=== PATIENT | female | born 1960 | race African-American/Black ===

== ENCOUNTER → 2016-03-05 | Outpatient (CLI) | payer BC | LOC: RAD 16:59 | PROVIDERS: ATTEND Family Medicine | DX: M25.531 Pain in right wrist (principal); M79.643 Pain in unspecified hand ==

== ENCOUNTER 2016-03-25 22:15 | Emergency (ER) | payer BC ==
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
[2016-03-26] MEDS ORDERED: IBUPROFEN 800 MG TABLET PO ONE (01:10)
[2016-03-26] MEDS ORDERED: DEXAMETHASONE SOD PHOS INJ 10 MG/1 ML VIAL IM ONE (03:07)
[2016-03-26] MEDS ORDERED: CYCLOBENZAPRINE HCL 10 MG TABLET PO ONE (03:13)
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
[2016-03-26 03:41] VITALS: BP 129/80
== END 2016-03-26 03:42 | disposition home or self-care (01) ==
LOC: ER 22:15
DX: M54.41 Lumbago with sciatica, right side (principal); M54.9 Dorsalgia, unspecified; V87.7XXA Person injured in collision between other specified motor vehicles (traffic), initial encounter
CPT/HCPCS: 99283; 96372; 72110; J1100

== ENCOUNTER 2017-03-25 15:33 | Inpatient (IN) | payer BC ==
[2017-03-25] MEDS ORDERED: ACETAMINOPHEN 325 MG TABLET PO PRN (15:34)
[2017-03-25] MEDS ORDERED: IPRATROPIUM/ALBUTEROL 0.5-2.5 MG/3 ML AMPUL NEB PRN (15:34)
[2017-03-25] MEDS ORDERED: NORMAL SALINE 1000 ML 1,000 ML IV PRN (15:34)
[2017-03-25] MEDS ORDERED: INSULIN LISPRO 100 UNIT/ML 3 ML VIAL SUBCUT PRN (15:39)
[2017-03-25] MEDS ORDERED: GLUCAGON,HUMAN RECOMB 1 MG INJ IM PRN (15:39)
[2017-03-25] MEDS ORDERED: DEXTROSE 50%-WATER 25 GM/50 ML DISP.SYRIN IV PRN ×2 (15:39)
[2017-03-25] MEDS ORDERED: DEXTROSE 40% GEL 15 GM TUBE PO PRN ×2 (15:39)
[2017-03-25] MEDS ORDERED: CEFTRIAXONE 1 GM/D5W RTU 1 GM/50 ML RTUPB IV SCH (16:00)
--- NOTE | 2017-03-25 16:13 | HISTORY AND PHYSICAL E ---
History and Physical NAME: VIDHI CUI : 1960 AGE: 56Y ADMITTED: 03/25/2017 ROOM: 415 CHIEF COMPLAINT: Dizziness, weakness. HISTORY OF PRESENT ILLNESS: This is a 56-year-old female with a history of type 2 diabetes mellitus, history of hypertension, history of hyperlipidemia, came to the office today with complaining of not feeling well and very dizzy, especially when she stands up and feels like passing out and feeling like room spinning kind of symptoms, vague symptoms with a recent history of the URI flu-like symptoms last week. Patient was, at that point, prescribed Zithromax and Tessalon Perles when respiratory symptoms came better. Today the patient is in the office and otherwise awake, oriented. No complaint with chest pain. Not short of breath but every time she starts to stand up, very dizzy. The patient's blood pressure was 92/66, which last week was 150-160 range. Patient's O2 sat was 99%. At this point, patient was very unstable. I decided to admit for possible dehydration, vertigo, and rule out any other dizziness symptoms. PAST MEDICAL HISTORY: 1. Type 2 diabetes mellitus. 2. Hypertension. 3. Hyperlipidemia. CURRENT MEDICATIONS: 1. Flonase. 2. Omeprazole 20 mg daily. 3. Vitamin D once a week. 4. *------* XL 5000 mg 1 tablet daily. 5. Hydrochlorothiazide 25 mg daily. 6. Losartan 50 mg p.o. daily. 7. Tessalon Perles. 8. Zithromax. ALLERGIES: TO CONTRAST IV DYE. PAST SURGICAL HISTORY: Hysterectomy. FAMILY HISTORY: Father has diabetes. Mother diagnosed with diabetes, too. SOCIAL HISTORY: No smoking. No alcohol. No substance abuse. REVIEW OF SYSTEMS: As above, all other pertinent systems negative. PHYSICAL EXAMINATION: VITAL SIGNS: Temperature is 98.6, heart rate was 99, blood pressure was 93/73 while sitting, supine is 101/67, standing is 92/66, weight is 180, respirations were 16, O2 is 99% on room air. GENERAL: The patient is alert, awake, oriented x3. There was not any acute distress. HEAD AND NECK: Normocephalic. PERRL. Ears are normal but there is some fluid in both ears. Nose has mild congestion. Oropharynx has dry mucosa. HEART: S1, S2 is present. ABDOMEN: Soft. Bowel sounds present. EXTREMITIES: No edema. No calf tenderness. NEUROLOGIC: The patient is moving all 4 extremities. Cranial nerves grossly intact *------*. Patient's reflexes are also normal. LUNGS: Clear to auscultation bilaterally. ASSESSMENT: 1. Dizziness, giddiness. 2. Hypotension. 3. Type 2 diabetes mellitus. 4. Recent URI, flu-like symptoms. 5. Hyperlipidemia. 6. Osteoarthritis with weakness. PLAN: Admit the patient in a tele bed for the possible dehydration and rule out the dizziness, get the IV fluid, get the MRI of the head, and get the urine culture, blood culture, start the patient on IV antibiotics, and continue to monitor the patient. Patient was complaining of mild shortness of breath. We will get the chest x-ray. More than 35 minutes spent directly admitting the patient to the hospital. Patient at this point discussed with the family. I hope the patient continues to be improved. DICTATING PHYSICIAN: AMADO BRADY M.D. [id number] Y#: [id number] ID: [id number] JOB#: [id number] ACCT: [id number] cc:AMADO BRADY M.D. >
[2017-03-25] MEDS ORDERED: INFLUENZA ADLT QUAD (36MOS+) 2017-18 VAC 0.5 ML SYR IM PRN (16:35)
[2017-03-25 17:10] LABS: CREATINE KINASE MB 1.07 ng/mL (<4.55)
[2017-03-25 17:12] LABS: TROPONIN I < 0.012 ng/mL
[2017-03-25] MEDS ORDERED: ENOXAPARIN SODIUM INJ 40 MG/0.4 ML DISP.SYRIN SUBCUT ONE (17:30)
--- NOTE | 2017-03-25 17:31 | RADIOLOGY REPORT (SQ) ---
EXAM DESCRIPTION: CHEST PA/LAT COMPLETED DATE/TIME: 03/25/2017 5:09 pm REASON FOR STUDY: cough COMPARISON: 03/24/2017 EXAM PARAMETERS: NUMBER OF VIEWS: two views TECHNIQUE: Digital Frontal and Lateral radiographic views of the chest acquired. RADIATION DOSE: NA LIMITATIONS: none FINDINGS: LUNGS AND PLEURA: No opacities, masses or pneumothorax. No pleural effusion. MEDIASTINUM AND HILAR STRUCTURES: No masses or contour abnormalities. HEART AND VASCULAR STRUCTURES: Heart normal size. No evidence for failure. BONES: No acute findings. HARDWARE: None in the chest. OTHER: No other significant finding. IMPRESSION: NO SIGNIFICANT RADIOGRAPHIC FINDING IN THE CHEST. TECHNICAL DOCUMENTATION: JOB ID: [id number] [employer]- All Rights Reserved
[2017-03-25] MEDS ORDERED: ALPRAZOLAM 0.25 MG TABLET PO ONE (18:00)
[2017-03-25 18:02] LABS: HEMATOCRIT 40.4 % (36.0-47.0); HEMOGLOBIN 12.9 g/dL (12.0-15.5); MEAN CORPUSCULAR HEMOGLOBIN 25.7 pg (27.0-33.4); MEAN CORPUSCULAR VOLUME 80 fl (80-97); PLATELET COUNT 239 10^3/uL (150-450); RED BLOOD COUNT 5.03 10^6/uL (3.72-5.28); RED CELL DISTRIBUTION WIDTH 15.9 % (11.5-14.0)
[2017-03-25 18:07] LABS: ALANINE AMINOTRANSFERASE 39 U/L (9-52); ALBUMIN 4.7 g/dL (3.5-5.0); ALKALINE PHOSPHATASE 86 U/L (38-126); ANION GAP 17 (5-19); ASPARTATE AMINO TRANSFERASE 42 U/L (14-36); BILIRUBIN,DIRECT 0.4 mg/dL (0.0-0.4); BILIRUBIN,TOTAL 0.4 mg/dL (0.2-1.3); BLOOD UREA NITROGEN 28 mg/dL (7-20); CALCIUM 10.4 mg/dL (8.4-10.2); CARBON DIOXIDE 24 mmol/L (22-30); CHLORIDE 100 mmol/L (98-107); GLUCOSE 114 mg/dL (75-110); POTASSIUM 3.4 mmol/L (3.6-5.0); SODIUM 140.6 mmol/L (137-145); TOTAL PROTEIN 8.2 g/dL (6.3-8.2)
[2017-03-25] MEDS: CEFTRIAXONE SODIUM 1,000 MG in NORMAL SALINE 50 ML IV SCH (18:24)
[2017-03-25 18:26] LABS: ABSOLUTE LYMPHOCYTES# (MANUAL) 2.5 10^3/uL (0.5-4.7); ABSOLUTE MONOCYTES # (MANUAL) 0.6 10^3/uL (0.1-1.4); ABSOLUTE NEUTROPHILS# (MANUAL) 0.9 10^3/uL (1.7-8.2); BASOPHILS % (MANUAL) 0 % (0-2); EOSINOPHILS % (MANUAL) 0 % (0-6); LYMPHOCYTES % (MANUAL) 55 % (13-45); MONOCYTES % (MANUAL) 15 % (3-13); SEGMENTED NEUTROPHILS % (MAN) 22 % (42-78); TOTAL CELLS COUNTED 100
[2017-03-25 18:27] LABS: ANISOCYTOSIS SLIGHT; HYPOCHROMASIA SLIGHT; PLATELET COMMENT ADEQUATE; TOXIC GRANULATION SLIGHT
--- NOTE | 2017-03-25 20:10 | RADIOLOGY REPORT (SQ) ---
EXAM DESCRIPTION: NM LUNG VENT/PERF SCAN COMPLETED DATE/TIME: 03/25/2017 7:53 pm REASON FOR STUDY: abnormal d-dimer COMPARISON: None. RADIONUCLIDE AND DOSE: 5.4 millicuries TC-99m MAA Intravenous 32.7 millicuries TC-99m DTPA Inhaled aerosol TECHNIQUE: Eight views of the lungs acquired post ventilation of DTPA aerosol. Eight matching views of the lungs acquired following injection of MAA. LIMITATIONS: None. FINDINGS: VENTILATION: Symmetric and homogeneous distribution of DTPA aerosol during ventilatory pha se. No significant areas of photopenia. PERFUSION: Perfusion images with normal homogenous activity and no wedge-shaped or segmental defects. No ventilation-perfusion mismatches. OTHER: No other significant finding. IMPRESSION: Low probability for pulmonary embolus. TECHNICAL DOCUMENTATION: JOB ID: [id number] [employer]- All Rights Reserved
--- NOTE | 2017-03-25 20:10 | RADIOLOGY REPORT (SQ) ---
EXAM DESCRIPTION: CT HEAD WITHOUT COMPLETED DATE/TIME: 03/25/2017 7:54 pm REASON FOR STUDY: dizziness, hypotension COMPARISON: None. TECHNIQUE: Axial images acquired through the brain without intravenous contrast. Images reviewed wi th bone, brain and subdural windows. Images stored on PACS. All CT scanners at this facility use dose modulation, iterative reconstruction, and/or weight based d osing when appropriate to reduce radiation dose to as low as reasonably achievable (ALARA). [facility]: Dose Right [facility]: CareDose [facility]: Dose Right [facility]: Teradose 4D [facility]: [employer] RADIATION DOSE: CT Rad equipment meets quality standard of care and radiation dose reduction techniq ues were employed. CTDIvol: 67.0 mGy. DLP: 1182 mGy-cm. mGy. LIMITATIONS: None. FINDINGS: VENTRICLES: Normal size and contour. CEREBRUM: No masses. No hemorrhage. No midline shift. No evidence for acute infarction. Normal gra y/white matter differentiation. No areas of low density in the white matter. CEREBELLUM: No masses. No hemorrhage. No alteration of density. No evidence for acute infarction. EXTRAAXIAL SPACES: No fluid collections. No masses. ORBITS AND GLOBE: No intra- or extraconal masses. Normal contour of globe without masses. CALVARIUM: No fracture. PARANASAL SINUSES: No fluid or mucosal thickening. SOFT TISSUES: No mass or hematoma. OTHER: No other significant finding. IMPRESSION: NORMAL BRAIN CT WITHOUT CONTRAST. EVIDENCE OF ACUTE STROKE: NO. COMMENT: Quality ID # [id number]: Final reports with documentation of one or more dose reduction techniques (e.g., Automated exposure control, adjustment of the mA and/or kV according to patient size, use of iterative reconstruction technique) TECHNICAL DOCUMENTATION: JOB ID: [id number] [employer]- All Rights Reserved
--- NOTE | 2017-03-25 21:22 | EKG REPORT ---
SEVERITY:- NORMAL ECG - SINUS RHYTHM : Confirmed by: Khang Narayanan 25-Mar-2017 21:21:11
[2017-03-25] MEDS: POTASSI CL 20 MEQ/NS 1L 1000 ML IV PRN (21:37)
[2017-03-25 22:52] LABS: TROPONIN I < 0.012 ng/mL
[2017-03-26 04:38] LABS: MEAN CORPUSCULAR HEMOGLOBIN 25.7 pg (27.0-33.4); MEAN CORPUSCULAR HGB CONC 32.5 g/dL (32.0-36.0); MEAN CORPUSCULAR VOLUME 79 fl (80-97); PLATELET COUNT 194 10^3/uL (150-450); RED BLOOD COUNT 4.67 10^6/uL (3.72-5.28); RED CELL DISTRIBUTION WIDTH 15.7 % (11.5-14.0); WHITE BLOOD COUNT 3.7 10^3/uL (4.0-10.5)
[2017-03-26 04:47] LABS: ALANINE AMINOTRANSFERASE 44 U/L (9-52); ALBUMIN 4.1 g/dL (3.5-5.0); ALKALINE PHOSPHATASE 69 U/L (38-126); ANION GAP 13 (5-19); ASPARTATE AMINO TRANSFERASE 37 U/L (14-36); BILIRUBIN,DIRECT 0.2 mg/dL (0.0-0.4); BILIRUBIN,TOTAL 0.2 mg/dL (0.2-1.3); BLOOD UREA NITROGEN 24 mg/dL (7-20); CALCIUM 9.4 mg/dL (8.4-10.2); CARBON DIOXIDE 23 mmol/L (22-30); CHLORIDE 105 mmol/L (98-107); CREATINE KINASE 180 U/L (30-135); GLUCOSE 109 mg/dL (75-110); MAGNESIUM 2.1 mg/dL (1.6-2.3); POTASSIUM 3.7 mmol/L (3.6-5.0); SODIUM 141.3 mmol/L (137-145); TOTAL PROTEIN 6.6 g/dL (6.3-8.2)
[2017-03-26 04:55] LABS: CREATINE KINASE MB 0.74 ng/mL (<4.55)
[2017-03-26 04:59] LABS: TROPONIN I < 0.012 ng/mL
[2017-03-26] MEDS: POTASSI CL 20 MEQ/NS 1L 1000 ML IV PRN ×3 (05:22→21:24)
[2017-03-26 05:40] LABS: ABSOLUTE LYMPHOCYTES# (MANUAL) 2.7 10^3/uL (0.5-4.7); ABSOLUTE MONOCYTES # (MANUAL) 0.3 10^3/uL (0.1-1.4); ABSOLUTE NEUTROPHILS# (MANUAL) 0.6 10^3/uL (1.7-8.2); BAND NEUTROPHILS % (MANUAL) 2 % (3-5); BASOPHILS % (MANUAL) 0 % (0-2); EOSINOPHILS % (MANUAL) 0 % (0-6); LYMPHOCYTES % (MANUAL) 68 % (13-45); MONOCYTES % (MANUAL) 9 % (3-13); SEGMENTED NEUTROPHILS % (MAN) 15 % (42-78); TOTAL CELLS COUNTED 100
[2017-03-26 05:45] LABS: HYPOCHROMASIA SLIGHT
[2017-03-26 05:46] LABS: PLATELET COMMENT ADEQUATE
[2017-03-26] MEDS ORDERED: MECLIZINE HCL 12.5 MG TABLET PO PRN (08:20)
[2017-03-26] MEDS: ASPIRIN 81 MG TABLET, ENT COATED PO SCH (09:09)
[2017-03-26] MEDS: ENOXAPARIN SODIUM INJ 40 MG/0.4 ML DISP.SYRIN SUBCUT SCH (09:09)
--- NOTE | 2017-03-26 10:20 | PDOC PROGRESS REPORT ---
Subjective Progress Note for:: 03/26/17 Subjective:: Patient is currently doing fair Still feel dizzy and most likely when she move safely like the room is spinning send the looks like she is going to passing out Patient's denied any chest pain denied any shortness of the breath Patient CT of the head and VQ scan was all negative Patient EKG and all cardiac enzymes also negative Patients definitely contact with the flu patient last week and I think started all the symptoms afterwards she is very consistent with the positive flu like symptoms Patient's kidney function is getting better compared to yesterday after hydrations Reason For Visit: DIZZINESS,HYPOTENSION,DEHYDRATION Physical Exam Vital Signs: Temp Pulse Resp BP Pulse Ox 98.3 F 73 18 103/71 97 03/26/17 07:41 03/26/17 07:41 03/26/17 07:41 03/26/17 07:41 03/26/17 07:41 Intake & Output 03/25/17 03/26/17 03/27/17 06:59 06:59 06:59 Intake Total 2690 Output Total 950 Balance 1740 Weight 79 kg General appearance: PRESENT: no acute distress, well-developed, well-nourished Head exam: PRESENT: atraumatic, normocephalic Eye exam: PRESENT: conjunctiva pink, EOMI, PERRLA. ABSENT: scleral icterus Ear exam: PRESENT: normal external ear exam Mouth exam: PRESENT: moist, tongue midline Neck exam: PRESENT: full ROM. ABSENT: carotid bruit, JVD, lymphadenopathy, thyromegaly Respiratory exam: PRESENT: clear to auscultation alicia Cardiovascular exam: PRESENT: RRR. ABSENT: diastolic murmur, rubs, systolic murmur Pulses: PRESENT: normal dorsalis pedis pul, +2 pedal pulses bilateral Vascular exam: PRESENT: normal capillary refill GI/Abdominal exam: PRESENT: normal bowel sounds, soft. ABSENT: distended, guarding, mass, organolmegaly, rebound, tenderness Rectal exam: PRESENT: deferred Musculoskeletal exam: PRESENT: ambulatory Neurological exam: PRESENT: alert, awake, oriented to person, oriented to place , oriented to time, oriented to situation, reflexes normal, CN II-XII grossly intact, normal gait. ABSENT: motor sensory deficit Additional comments: Needed assistance to walk because of the vertigo symptoms Psychiatric exam: PRESENT: appropriate affect, normal mood. ABSENT: homicidal ideation, suicidal ideation Skin exam: PRESENT: dry, intact, warm. ABSENT: cyanosis, rash Results Laboratory Results: 03/26/17 04:04 03/26/17 04:04 03/25/17 03/25/17 03/26/17 16:30 16:30 04:04 WBC 4.0 3.7 L RBC 5.03 4.67 Hgb 12.9 12.0 Hct 40.4 37.0 MCV 80 79 L MCH 25.7 L 25.7 L MCHC 32.0 32.5 RDW 15.9 H 15.7 H Plt Count 239 194 Seg Neutrophils % Not Reportable Not Reportable Lymphocytes % Not Reportable Not Reportable Monocytes % Not Reportable Not Reportable Eosinophils % Not Reportable Not Reportable Basophils % Not Reportable Not Reportable Absolute Neutrophils Not Reportable Not Reportable Absolute Lymphocytes Not Reportable Not Reportable Absolute Monocytes Not Reportable Not Reportable Absolute Eosinophils Not Reportable Not Reportable Absolute Basophils Not Reportable Not Reportable Sodium 140.6 Potassium 3.4 L Chloride 100 Carbon Dioxide 24 Anion Gap 17 BUN 28 H Creatinine 1.74 H Est GFR ( Amer) 36 L Est GFR (Non-Af Amer) 30 L Glucose 114 H Calcium 10.4 H Magnesium Total Bilirubin 0.4 AST 42 H ALT 39 Alkaline Phosphatase 86 Total Protein 8.2 Albumin 4.7 03/26/17 04:04 WBC RBC Hgb Hct MCV MCH MCHC RDW Plt Count Seg Neutrophils % Lymphocytes % Monocytes % Eosinophils % Basophils % Absolute Neutrophils Absolute Lymphocytes Absolute Monocytes Absolute Eosinophils Absolute Basophils Sodium 141.3 Potassium 3.7 Chloride 105 Carbon Dioxide 23 Anion Gap 13 BUN 24 H Creatinine 1.07 Est GFR ( Amer) > 60 Est GFR (Non-Af Amer) 53 L Glucose 109 Calcium 9.4 Magnesium 2.1 Total Bilirubin 0.2 AST 37 H ALT 44 Alkaline Phosphatase 69 Total Protein 6.6 Albumin 4.1 03/25/17 03/25/17 03/25/17 16:30 16:30 21:40 Creatine Kinase 234 H 197 H CK-MB (CK-2) 1.07 Troponin I < 0.012 03/25/17 03/26/17 03/26/17 21:40 04:04 04:04 Creatine Kinase 180 H CK-MB (CK-2) 0.90 0.74 Troponin I < 0.012 < 0.012 Impressions: Chest X-Ray 03/25/17 00:00 IMPRESSION: NO SIGNIFICANT RADIOGRAPHIC FINDING IN THE CHEST. Head CT 03/25/17 00:00 IMPRESSION: NORMAL BRAIN CT WITHOUT CONTRAST. EVIDENCE OF ACUTE STROKE: NO. Lung Scan-VQ NM 03/25/17 00:00 IMPRESSION: Low probability for pulmonary embolus. Assessment & Plan - Diagnosis (1) Dizziness and giddiness Is this a current diagnosis for this admission?: Yes Plan: Patient's initial CT head is all negatives unfortunately patient is unable to go for MRI due to the claustrophobia even the medications does not work We will get the carotid Doppler and echocardiogram (2) Vertigo Is this a current diagnosis for this admission?: Yes Plan: Likely due to this viral syndromes will get the physical therapy evaluations and start the patient on the meclizine (3) Acute renal failure Qualifiers: Acute renal failure type: unspecified Qualified Code(s): N17.9 - Acute kidney failure, unspecified Is this a current diagnosis for this admission?: Yes Plan: Is all improving due to the dehydration's (4) Dehydration Is this a current diagnosis for this admission?: Yes Plan: Continues IV fluid (5) Hypotension Qualifiers: Hypotension type: unspecified hypotension type Qualified Code(s): I95.9 - Hypotension, unspecified Is this a current diagnosis for this admission?: Yes Plan: Most likely related to the resistance viral symptoms will continues IV fluid and hold the blood pressure medications (6) Viral syndrome Is this a current diagnosis for this admission?: Yes Plan: Patient's contact with the flu person she is more consistent with all the symptoms Continue supportive treatments patient's currently improving the all URI symptoms no fever (7) Type 2 diabetes mellitus Qualifiers: Diabetes mellitus complication status: with unspecified complications Is this a current diagnosis for this admission?: Yes Plan: Continues a sliding scale with [facility] protocol (8) Hyperlipidemia Is this a current diagnosis for this admission?: Yes (9) Hypertension Is this a current diagnosis for this admission?: Yes Plan: Due to the low blood pressures currently hold the medications - Time Time Spent with patient: 15-24 minutes Medications reviewed and adjusted accordingly: Yes Anticipated discharge: Home Within: Other - Inpatient Certification Medical Necessity: Need Close Monitoring Due to Risk of Patient Decompensation, Need For IV Fluids, Need for IV Antibiotics Post Hospital Care: D/C Press Cutter Documentation - Plan Summary Plan Summary: Discussed with the patient about the all the test reports we will continues IV fluid and we antibiotic and await for the cultures and get the echo and carotid Doppler study today
[2017-03-26 11:34] LABS: CREATINE KINASE MB 0.62 ng/mL (<4.55)
[2017-03-26 11:35] LABS: TROPONIN I < 0.012 ng/mL
[2017-03-26 11:38] LABS: PATH REVIEW PATHOLOGIST REVIEWED
[2017-03-26] MEDS: MECLIZINE HCL 12.5 MG TABLET PO SCH ×2 (13:20→21:24)
--- NOTE | 2017-03-26 14:34 | RADIOLOGY REPORT (SQ) ---
EXAM DESCRIPTION: CT CHEST WITHOUT COMPLETED DATE/TIME: 03/26/2017 1:36 pm REASON FOR STUDY: cough/hypotension COMPARISON: Chest x-ray dated 03/25/[address] scan dated July 2008 TECHNIQUE: CT scan performed of the chest without intravenous contrast. Images reviewed with lung, soft tissue and bone windows. Reconstructed coronal and sagittal MPR images reviewed. All images st ored on PACS. All CT scanners at this facility use dose modulation, iterative reconstruction, and/or weight based d osing when appropriate to reduce radiation dose to as low as reasonably achievable (ALARA). [facility]: Dose Right [facility]: CareDose [facility]: Dose Right [facility]: Teradose 4D [facility]: Smart Joinnus RADIATION DOSE: CT Rad equipment meets quality standard of care and radiation dose reduction techniq ues were employed. CTDIvol: 12.2 mGy. DLP: 461 mGy-cm. mGy. LIMITATIONS: No technical limitations. FINDINGS: LUNGS AND PLEURA: No masses, infiltrates, pneumothorax. No pleural effusions, calcificati ons. There are some minimal linear densities in the lingula of the left upper lobe most consistent w ith subsegmental atelectasis or scarring. HILAR AND MEDIASTINAL STRUCTURES: No identified masses or abnormal nodes. No obvious aneurysm. HEART AND VASCULAR STRUCTURES: No aneurysm. No pericardial effusion. UPPER ABDOMEN: There is a well demarcated 1.1 cm in diameter ovoid mass adjacent to the wall of the g allbladder best seen on image number 59 of series 2 which I cannot exclude as a small gallbladder mas s lesion. Gallbladder ultrasound may be of value for further evaluation. THYROID AND OTHER SOFT TISSUES: No masses. No adenopathy. BONES: No significant finding. HARDWARE: None in the chest. OTHER: No other significant findings. IMPRESSION: Minimal linear densities in the lingula of the left upper lobe as noted above most consi stent with subsegmental atelectasis or scarring. No acute consolidations or pleural effusions are id entified. Other findings as noted above TECHNICAL DOCUMENTATION: JOB ID: [id number] Quality ID # [id number]: Final reports with documentation of one or more dose reduction techniques (e.g., Au tomated exposure control, adjustment of the mA and/or kV according to patient size, use of iterative reconstruction technique) 2010 [employer]- All Rights Reserved
[2017-03-26 15:35] LABS: CREATINE KINASE MB 0.56 ng/mL (<4.55)
[2017-03-26 15:38] LABS: TROPONIN I < 0.012 ng/mL
[2017-03-26] MEDS: CEFTRIAXONE SODIUM 1,000 MG in NORMAL SALINE 50 ML IV SCH (17:37)
[2017-03-26 21:46] LABS: CREATINE KINASE MB 0.42 ng/mL (<4.55)
[2017-03-26 21:49] LABS: TROPONIN I < 0.012 ng/mL
[2017-03-27] MEDS: POTASSI CL 20 MEQ/NS 1L 1000 ML IV PRN (05:22)
[2017-03-27] MEDS: MECLIZINE HCL 12.5 MG TABLET PO SCH ×2 (05:22→14:31)
[2017-03-27 05:55] LABS: ANION GAP 8 (5-19); BLOOD UREA NITROGEN 16 mg/dL (7-20); CALCIUM 8.6 mg/dL (8.4-10.2); CARBON DIOXIDE 28 mmol/L (22-30); CHLORIDE 110 mmol/L (98-107); GLUCOSE 103 mg/dL (75-110); POTASSIUM 4.2 mmol/L (3.6-5.0); SODIUM 145.7 mmol/L (137-145)
[2017-03-27 06:15] LABS: MEAN CORPUSCULAR HEMOGLOBIN 25.8 pg (27.0-33.4); MEAN CORPUSCULAR HGB CONC 32.4 g/dL (32.0-36.0); MEAN CORPUSCULAR VOLUME 80 fl (80-97); PLATELET COUNT 213 10^3/uL (150-450); RED BLOOD COUNT 4.27 10^6/uL (3.72-5.28); RED CELL DISTRIBUTION WIDTH 15.4 % (11.5-14.0); WHITE BLOOD COUNT 3.9 10^3/uL (4.0-10.5)
[2017-03-27 06:49] LABS: ABSOLUTE MONOCYTES # (MANUAL) 0.2 10^3/uL (0.1-1.4); ABSOLUTE NEUTROPHILS# (MANUAL) 0.2 10^3/uL (1.7-8.2); BASOPHILS % (MANUAL) 0 % (0-2); EOSINOPHILS % (MANUAL) 1 % (0-6); MONOCYTES % (MANUAL) 5 % (3-13); SEGMENTED NEUTROPHILS % (MAN) 5 % (42-78); TOTAL CELLS COUNTED 100
[2017-03-27 06:59] LABS: ABSOLUTE LYMPHOCYTES# (MANUAL) 3.5 10^3/uL (0.5-4.7); ANISOCYTOSIS 1+; HYPOCHROMASIA SLIGHT; LYMPHOCYTES % (MANUAL) 82 % (13-45)
[2017-03-27 07:00] LABS: PLATELET COMMENT ADEQUATE
[2017-03-27] MEDS: ASPIRIN 81 MG TABLET, ENT COATED PO SCH (10:14)
[2017-03-27] MEDS: ENOXAPARIN SODIUM INJ 40 MG/0.4 ML DISP.SYRIN SUBCUT SCH (10:15)
--- NOTE | 2017-03-27 12:14 | RADIOLOGY REPORT (SQ) ---
EXAM DESCRIPTION: U/S ABDOMEN LIMITED W/O DOP COMPLETED DATE/TIME: 03/27/2017 11:46 am REASON FOR STUDY: gall bladder mass COMPARISON: Chest CT scan dated 03/26/2017 TECHNIQUE: Dynamic and static grayscale images acquired of the abdomen and recorded on PACS. Additio nal selected color Doppler and spectral images recorded. LIMITATIONS: None. FINDINGS: PANCREAS: No masses. No peripancreatic edema or fluid collections. LIVER: Echotexture is coarse with increased echogenicity consistent with fatty infiltration. LIVER VASCULATURE: Normal directional flow of the main portal vein. GALLBLADDER: Small gallstones are identified as well as a component of biliary sludge. Normal wall th ickness. No pericholecystic fluid. ULTRASOUND-DETECTED MARTINEZ'S SIGN: Negative. INTRAHEPATIC DUCTS AND COMMON DUCT: CBD and intrahepatic ducts normal caliber. No filling defects. INFERIOR VENA CAVA: Normal flow. AORTA: No aneurysm. RIGHT KIDNEY: Normal size. Normal echogenicity. No solid or suspicious masses. No hydronephrosis. No calcifications. PERITONEAL AND RIGHT PLEURAL SPACE: No ascites or effusions. OTHER: No other significant finding. IMPRESSION: FATTY INFILTRATION OF THE LIVER. Findings consistent with small gallstones as well as a component of biliary sludge. No other significant findings. TECHNICAL DOCUMENTATION: JOB ID: [id number] [employer]- All Rights Reserved
--- NOTE | 2017-03-27 15:16 | RADIOLOGY REPORT (SQ) ---
EXAM DESCRIPTION: CAROTID DOPPLER COMPLETED DATE/TIME: 03/27/2017 3:07 pm REASON FOR STUDY: dizziness COMPARISON: None. TECHNIQUE: Grayscale ultrasound, Doppler velocity and spectra, and color Doppler images acquired of the extra-cranial carotid and vertebral arteries. Images stored on PACS. LIMITATIONS: None. FINDINGS: RIGHT CAROTID CCA Velocities: Within normal limits. ICA Velocities Peak systolic 0.81 m/s. End diastolic 0.18 m/s. Proximal ICA/CCA peak systolic ratio 1.0. Spectra normal. No significant plaque. LEFT CAROTID CCA Velocities: Within normal limits. ICA Velocities Peak systolic 0.58 m/s. End diastolic 0.27 m/s. Proximal ICA/CCA peak systolic ratio point and. Spectra normal. No significant plaque. VERTEBRAL ARTERIES: Antegrade flow. Normal waveforms. SUBCLAVIAN ARTERIES: No finding. OTHER: No other significant finding. IMPRESSION: NO HEMODYNAMICALLY SIGNIFICANT STENOSIS. COMMENT: Quality ID #[id number]: Velocity criteria are extrapolated from the diameter data as defined by t he Society of Radiologists in Ultrasound Consensus Conference. Radiology 2003: 229; 340-346. TECHNICAL DOCUMENTATION: JOB ID: [id number] [employer]- All Rights Reserved
--- NOTE | 2017-03-27 15:34 | XCELERA REPORT ---
[address] [address] Transthoracic Echocardiogram Report Name: VIDHI CUI Age: 56 yrs Gender: Female : 1960 Patient Status: Inpatient Patient Location: [address] [place] [address] Study Date: 03/27/2017 01:25 PM Height: 66 in Weight: 174 lb BSA: 1.9 m2 Procedure: A complete two-dimensional transthoracic echocardiogram was performed (2D, M-mode, spectral and color flow Doppler). The study was technically adequate with some images being suboptimal in quality. Reason For Study: dizziness Ordering Physician: AMADO BRADY Performed By: Jessy Luz Interpretation Summary The left ventricular ejection fraction is within normal limits. There is borderline concentric left ventricular hypertrophy. Doppler measurements suggest impaired left ventricular relaxation, which is associated with grade I/IV or mild diastolic dysfunction The left ventricle is grossly normal size. Wall motion cannot be accurately commented on, but no definite regional wall motion abnormalities noted. Borderline right ventricular enlargement. The right ventricular systolic function is normal. The right atrium is normal in size The left atrial size is normal. There is a mild amount of mitral regurgitation There is no mitral valve stenosis. There is a trace amount of aortic regurgitation There is no aortic valve stenosis There is a trace to mild amount of tricuspid regurgitation Right ventricular systolic pressure is at the upper limits of normal The aortic root is not well visualized but is probably normal size. The inferior vena cava appeared normal and decreased > 50% with respiration (RAP 5-10 mmHg) There is no pericardial effusion. MMode/2D Measurements & Calculations RVDd: 3.7 cm LVIDd: 4.0 cm FS: 38.4 % Ao root diam: 2.2 cm IVSd: 1.0 cm LVIDs: 2.5 cm EDV(Teich): 70.0 ml LVPWd: 0.96 cm ESV(Teich): 21.5 ml Ao root area: 3.8 cm2 EF(Teich): 69.3 % Doppler Measurements & Calculations MV E max rocio: MV dec slope: Ao V2 max: LV V1 max P.8 cm/sec 138.9 cm/sec 3.8 mmHg MV A max rocio: 430.4 cm/sec2 Ao max PG: LV V1 max: 68.4 cm/sec MV dec time: 7.7 mmHg 97.6 cm/sec MV E/A: 1.2 0.19 sec PA V2 max: TR max rocio: 78.6 cm/sec 253.2 cm/sec PA max PG: TR max P.8 mmHg 2.5 mmHg Left Ventricle The left ventricle is grossly normal size. There is borderline concentric left ventricular hypertrophy. The left ventricular ejection fraction is within normal limits. Doppler measurements suggest impaired left ventricular relaxation, which is associated with grade I/IV or mild diastolic dysfunction. Wall motion cannot be accurately commented on, but no definite regional wall motion abnormalities noted. Right Ventricle Borderline right ventricular enlargement. There is normal right ventricular wall thickness. The right ventricular systolic function is normal. Atria The right atrium is normal in size. The left atrial size is normal. Interarterial septum not well visualized and not well dopplered. Cannot comment on ASD/PFO presence. Mitral Valve The mitral valve is grossly normal. There is no mitral valve stenosis. There is a mild amount of mitral regurgitation. Aortic Valve The aortic valve is not well visualized secondary to technical limitations. There is no aortic valve stenosis. There is a trace amount of aortic regurgitation. Tricuspid Valve The tricuspid valve is not well visualized secondary to technical limitations. There is no tricuspid stenosis. There is a trace to mild amount of tricuspid regurgitation. Right ventricular systolic pressure is at the upper limits of normal. Pulmonic Valve The pulmonic valve is not well visualized. Great Vessels The aortic root is not well visualized but is probably normal size. The inferior vena cava appeared normal and decreased > 50% with respiration (RAP 5-10 mmHg). Effusions There is no pericardial effusion. : AMADO BRADY > Khang Narayanan
[2017-03-27 16:27] VITALS: BP 120/75
--- NOTE | 2017-03-27 16:56 | PDOC DISCHARGE SUMMARY ---
General - Admit/Disc Date/PCP Admission Date/Primary Care Provider: 03/25/17 15:33 Discharge Date: 03/27/17 - Discharge Diagnosis (1) Dizziness and giddiness Is this a current diagnosis for this admission?: Yes Summary: currently all resolved Patient's echocardiogram carotid Doppler and CT head is all negative most likely related to the dehydration's with the recent flu like symptoms and possible vertigo (2) Vertigo Is this a current diagnosis for this admission?: Yes Summary: After the start the meclizine's patient's feeling much better and able to walk without any problems (3) Acute renal failure Is this a current diagnosis for this admission?: Yes Summary: resolved (4) Dehydration Is this a current diagnosis for this admission?: Yes Summary: All resolved (5) Hypotension Is this a current diagnosis for this admission?: Yes Summary: Currently all resolved no sign of any sepsis (6) Viral syndrome Is this a current diagnosis for this admission?: Yes Summary: Currently all improving (7) Type 2 diabetes mellitus Is this a current diagnosis for this admission?: Yes Summary: stable (8) Hyperlipidemia Is this a current diagnosis for this admission?: Yes Summary: stable (9) Hypertension Is this a current diagnosis for this admission?: Yes Summary: hold all bp med (10) Gall stone Is this a current diagnosis for this admission?: Yes Summary: stable f/u out pt - Additional Information Discharge Diet: Diabetic Discharge Activity: Activity As Tolerated Prescriptions: Meclizine HCl [Antivert 12.5 mg Tablet] 12.5 mg PO Q8 #21 tablet Home Medications: Aspirin [Adult Low Dose Aspirin EC] 81 mg PO DAILY 03/25/17 Benzonatate [Tessalon Perles 100 mg Capsule] 100 mg PO TIDP PRN 03/25/17 Ergocalciferol (Vitamin D2) [Drisdol 50,000 unit (1.25MG) Capsule] 50,000 units PO TU 03/25/17 Omeprazole 20 mg PO DAILY 03/25/17 Saxagliptin HCl/Metformin HCl [Kombiglyze Xr 5-1,000 mg Tab] 1 tab PO WSUPPER Meclizine HCl [Antivert 12.5 mg Tablet] 12.5 mg PO Q8 #21 tablet 03/27/17 History of Present Illness History of Present Illness: VIDHI CUI is a 56 year old female This is a 56-year-old female is present in the office because of the feeling of dizziness and vertigo-like symptoms and hypotensive's and recently had contact with the flu patient's with upper respiratory symptoms and decided to admit the patient in the hospital for further evaluation and treatments Hospital Course Hospital Course: This 56-year-old females presented in the office with a complaint for dizziness and vertigo symptoms and antihypertensives with the recent diagnosis with the flulike symptoms with a URI and patient was treated with outpatients but patient at this point very dizzy and vertigo decided to admit in the hospital for the IV fluid and IV antibiotic Patient start with IV fluids and patient was CT of the head was done was all negatives patient also have a VQ scan was done also negative's and had echocardiogram and a Doppler study was all negatives for no acute finding Patient EKG and cardiac enzymes all stable Patient's blood work is all stable except patient's CBC suggest most likely a predominant lymphocyte which is most likely related to the viral origin Patient's response very well with IV fluid and the meclizine's and patients walk in the hallway and p.o. intake is good and patient's discharge home with the stable condition discussed with the family We will follow the patient in the office in 1 week and repeat the CBC and Chem- 7 in the reevaluate the patient's blood pressures Physical Exam Vital Signs: Temp Pulse Resp BP Pulse Ox 97.4 F 72 16 120/75 99 03/27/17 16:24 03/27/17 16:24 03/27/17 16:24 03/27/17 16:24 03/27/17 16:24 Intake & Output 03/26/17 03/27/17 03/28/17 06:59 06:59 06:59 Intake Total 2690 4623 Output Total 950 2900 Balance 1740 1723 Weight 79 kg 84.1 kg General appearance: PRESENT: no acute distress, well-developed, well-nourished Head exam: PRESENT: atraumatic, normocephalic Eye exam: PRESENT: conjunctiva pink, EOMI, PERRLA. ABSENT: scleral icterus Ear exam: PRESENT: normal external ear exam Mouth exam: PRESENT: moist, tongue midline Neck exam: PRESENT: full ROM. ABSENT: carotid bruit, JVD, lymphadenopathy, thyromegaly Respiratory exam: PRESENT: clear to auscultation alicia Cardiovascular exam: PRESENT: RRR. ABSENT: diastolic murmur, rubs, systolic murmur Pulses: PRESENT: normal dorsalis pedis pul, +2 pedal pulses bilateral Vascular exam: PRESENT: normal capillary refill GI/Abdominal exam: PRESENT: normal bowel sounds, soft. ABSENT: distended, guarding, mass, organolmegaly, rebound, tenderness Rectal exam: PRESENT: deferred Extremities exam: ABSENT: full ROM, left AKA, right AKA, left BKA, right BKA, calf tenderness, joint swelling, pedal edema, tenderness, other Musculoskeletal exam: ABSENT: ambulatory, deformity, dislocation, full ROM, normal inspection, tenderness, other Neurological exam: PRESENT: alert, awake, oriented to person, oriented to place , oriented to time, oriented to situation, CN II-XII grossly intact. ABSENT: motor sensory deficit Psychiatric exam: PRESENT: appropriate affect, normal mood. ABSENT: homicidal ideation, suicidal ideation Skin exam: PRESENT: dry, intact, warm. ABSENT: cyanosis, rash Results Laboratory Results: 03/27/17 05:25 03/27/17 05:25 03/27/17 03/27/17 05:25 05:25 WBC 3.9 L RBC 4.27 Hgb 11.0 L Hct 34.0 L MCV 80 MCH 25.8 L MCHC 32.4 RDW 15.4 H Plt Count 213 Seg Neutrophils % Not Reportable Lymphocytes % Not Reportable Monocytes % Not Reportable Eosinophils % Not Reportable Basophils % Not Reportable Absolute Neutrophils Not Reportable Absolute Lymphocytes Not Reportable Absolute Monocytes Not Reportable Absolute Eosinophils Not Reportable Absolute Basophils Not Reportable Sodium 145.7 H Potassium 4.2 Chloride 110 H Carbon Dioxide 28 Anion Gap 8 BUN 16 Creatinine 0.78 Est GFR ( Amer) > 60 Est GFR (Non-Af Amer) > 60 Glucose 103 Calcium 8.6 03/25/17 23:00 Clean Catch Midstream Urine Culture - Final Mixed Urogenital Sunita 03/25/17 03/25/17 03/25/17 16:30 16:30 21:40 Creatine Kinase 234 H 197 H CK-MB (CK-2) 1.07 Troponin I < 0.012 03/25/17 03/26/17 03/26/17 21:40 04:04 04:04 Creatine Kinase 180 H CK-MB (CK-2) 0.90 0.74 Troponin I < 0.012 < 0.012 03/26/17 03/26/17 03/26/17 10:12 10:12 14:43 Creatine Kinase 166 H 145 H CK-MB (CK-2) 0.62 Troponin I < 0.012 03/26/17 03/26/17 03/26/17 14:43 20:52 20:52 Creatine Kinase 120 CK-MB (CK-2) 0.56 0.42 Troponin I < 0.012 < 0.012 Impressions: Chest X-Ray 03/25/17 00:00 IMPRESSION: NO SIGNIFICANT RADIOGRAPHIC FINDING IN THE CHEST. Head CT 03/25/17 00:00 IMPRESSION: NORMAL BRAIN CT WITHOUT CONTRAST. EVIDENCE OF ACUTE STROKE: NO. Lung Scan-VQ NM 03/25/17 00:00 IMPRESSION: Low probability for pulmonary embolus. Chest CT 03/26/17 00:00 IMPRESSION: Minimal linear densities in the lingula of the left upper lobe as noted above most consistent with subsegmental atelectasis or scarring. No acute consolidations or pleural effusions are identified. Other findings as noted above Abdomen Ultrasound 03/27/17 00:00 IMPRESSION: FATTY INFILTRATION OF THE LIVER. Findings consistent with small gallstones as well as a component of biliary sludge. No other significant findings. Carotid Doppler Study 03/27/17 00:00 IMPRESSION: NO HEMODYNAMICALLY SIGNIFICANT STENOSIS. Plan Time Spent: Greater than 30 Minutes - Discussed with the patient about all the test reports and following office in 1 week and repeat the CBC Chem-7 and reevaluate the blood pressures
== END 2017-03-27 17:34 | disposition home or self-care (01) | DRG 641 ==
LOC: 4N 15:33
PROVIDERS: ADMIT Family Medicine; ATTEND Family Medicine
DX: E86.0 Dehydration (principal); N17.9 Acute kidney failure, unspecified; B34.9 Viral infection, unspecified; R42 Dizziness and giddiness; E11.9 Type 2 diabetes mellitus without complications; E78.5 Hyperlipidemia, unspecified; I95.9 Hypotension, unspecified; I10 Essential (primary) hypertension; M19.90 Unspecified osteoarthritis, unspecified site; Z79.899 Other long term (current) drug therapy; Z90.710 Acquired absence of both cervix and uterus; Z83.3 Family history of diabetes mellitus; Z91.041 Radiographic dye allergy status
CPT/HCPCS: 36415; 70450; 71046; 71250; 76705; 78582; 80048; 80053; 82550; 82553; 82962; 83735; 84484; 85025; 85379; 87040; 87086; 93005; 93010; 93306; 93880; A9540; A9567; J0696; J1650; J3480; J3490; Q9969

== ENCOUNTER → 2017-05-29 | Outpatient (CLI) | payer BC ==
--- NOTE | 2017-05-29 11:01 | RADIOLOGY REPORT (SQ) ---
EXAM DESCRIPTION: HAND LEFT 3 VIEWS COMPLETED DATE/TIME: 05/29/2017 10:12 am REASON FOR STUDY: HAND PAIN,LEFT M79.642 PAIN IN LEFT HAND COMPARISON: None. EXAM PARAMETERS: NUMBER OF VIEWS: Three views. TECHNIQUE: AP, lateral and oblique radiographic images acquired of the left hand. LIMITATIONS: None. FINDINGS: MINERALIZATION: Normal. BONES: No acute fracture or dislocation. No worrisome bone lesions. JOINTS: No effusions. SOFT TISSUES: No soft tissue swelling. No foreign body. OTHER: No other significant finding. IMPRESSION: NEGATIVE STUDY OF THE LEFT HAND. NO RADIOGRAPHIC EVIDENCE OF ACUTE INJURY. TECHNICAL DOCUMENTATION: JOB ID: [id number] [employer]- All Rights Reserved Reading location - IP/workstation name: [email or web address]
== END ==
LOC: OD 09:59
PROVIDERS: ATTEND Family Medicine
DX: M79.642 Pain in left hand (principal)

== ENCOUNTER → 2018-03-26 | Outpatient (CLI) | payer BC ==
[2018-03-26 08:21] LABS: ABSOLUTE BASOPHILS # (AUTO) 0.1 10^3/uL (0.0-0.2); ABSOLUTE EOSINOPHILS # (AUTO) 0.3 10^3/uL (0.0-0.6); ABSOLUTE LYMPHOCYTES (AUTO) 3.4 10^3/uL (0.5-4.7); ABSOLUTE MONOCYTES (AUTO) 0.5 10^3/uL (0.1-1.4); ABSOLUTE NEUT (AUTO) 2.1 10^3/uL (1.7-8.2); BASOPHILS % (AUTO) 0.9 % (0-2); EOSINOPHILS % (AUTO) 5.4 % (0-6); HEMATOCRIT 36.7 % (36.0-47.0); LYMPHOCYTES % (AUTO) 53.5 % (13-45); MEAN CORPUSCULAR HEMOGLOBIN 26.5 pg (27.0-33.4); MEAN CORPUSCULAR HGB CONC 32.6 g/dL (32.0-36.0); MEAN CORPUSCULAR VOLUME 81 fl (80-97); MONOCYTES % (AUTO) 7.1 % (3-13); PLATELET COUNT 290 10^3/uL (150-450); RED BLOOD COUNT 4.52 10^6/uL (3.72-5.28); SEGMENTED NEUTROPHILS % (AUTO) 33.1 % (42-78); TOTAL CELLS COUNTED % (AUTO) 100 %; WHITE BLOOD COUNT 6.4 10^3/uL (4.0-10.5)
--- NOTE | 2018-03-26 08:35 | RADIOLOGY REPORT (SQ) ---
EXAM DESCRIPTION: CHEST 2 VIEWS COMPLETED DATE/TIME: 03/26/2018 8:12 am REASON FOR STUDY: COUGH (R05) COMPARISON: Two-view chest 03/25/2017, 03/24/2015 CT chest 03/26/2017 EXAM PARAMETERS: NUMBER OF VIEWS: two views TECHNIQUE: Digital Frontal and Lateral radiographic views of the chest acquired. RADIATION DOSE: NA LIMITATIONS: none FINDINGS: LUNGS AND PLEURA: Minimal lingular atelectasis or scarring. Lungs are otherwise well infl ated and clear. No pleural effusion. No pneumothorax. MEDIASTINUM AND HILAR STRUCTURES: No masses or contour abnormalities. HEART AND VASCULAR STRUCTURES: Heart normal size. No evidence for failure. BONES: No acute findings. HARDWARE: None in the chest. OTHER: No other significant finding. IMPRESSION: NO ACUTE RADIOGRAPHIC FINDING IN THE CHEST. TECHNICAL DOCUMENTATION: JOB ID: [id number] [email or web address]- All Rights Reserved Reading location - IP/workstation name: [email or web address]
[2018-03-26 08:39] LABS: ALANINE AMINOTRANSFERASE 34 U/L (9-52); ALBUMIN 4.5 g/dL (3.5-5.0); ALKALINE PHOSPHATASE 77 U/L (38-126); ANION GAP 9 (5-19); ASPARTATE AMINO TRANSFERASE 28 U/L (14-36); BILIRUBIN,DIRECT 0.1 mg/dL (0.0-0.4); BILIRUBIN,TOTAL 0.7 mg/dL (0.2-1.3); BLOOD UREA NITROGEN 26 mg/dL (7-20); CALCIUM 9.8 mg/dL (8.4-10.2); CARBON DIOXIDE 30 mmol/L (22-30); CHLORIDE 102 mmol/L (98-107); GLUCOSE 130 mg/dL (75-110); POTASSIUM 3.4 mmol/L (3.6-5.0); SODIUM 140.5 mmol/L (137-145); TOTAL PROTEIN 7.3 g/dL (6.3-8.2)
== END ==
LOC: RAD 07:56
PROVIDERS: ATTEND Family Medicine
DX: R05 Cough (principal)
CPT/HCPCS: 36415; 71046; 80053; 85025

== ENCOUNTER → 2019-03-02 | Outpatient (CLI) | payer BC ==
--- NOTE | 2019-03-02 13:29 | RADIOLOGY REPORT (SQ) ---
EXAM DESCRIPTION: ACUTE ABDOMEN SERIES COMPLETED DATE/TIME: 03/02/2019 9:41 am REASON FOR STUDY: CONSTIPATION, UNSPECIFIED K59.00 CONSTIPATION, UNSPECIFIED COMPARISON: None. NUMBER OF VIEWS: Three views. TECHNIQUE: Frontal chest, supine abdomen and upright/decubitus abdomen radiographic images acquired. LIMITATIONS: None. FINDINGS: CHEST: Lungs clear of infiltrates. FREE AIR: None. No abnormal gas collections. BOWEL GAS PATTERN: Nonobstructive gas pattern. Moderate retained stool. CALCIFICATIONS: There are calcifications along the approximate course of the left ureter. These may represent phleboliths. HARDWARE: None in the abdomen. SOFT TISSUES: No gross mass or suggestion of organomegaly. BONES: No acute fracture. No worrisome bone lesions. OTHER: No other significant finding. IMPRESSION: Constipation. Calcifications as described. TECHNICAL DOCUMENTATION: JOB ID: [id number] [employer]- All Rights Reserved Reading location - IP/workstation name: [email or web address]
== END ==
LOC: OD 09:29
PROVIDERS: ATTEND Physician Assistant
DX: K59.00 Constipation, unspecified (principal)
CPT/HCPCS: 74022

== ENCOUNTER → 2019-04-13 | Outpatient (CLI) | payer BC ==
--- NOTE | 2019-04-13 19:29 | RADIOLOGY REPORT (SQ) ---
EXAM DESCRIPTION: CHEST 2 VIEWS COMPLETED DATE/TIME: 04/13/2019 7:17 pm REASON FOR STUDY: R05 COUGH COMPARISON: 03/26/2018 EXAM PARAMETERS: NUMBER OF VIEWS: two views TECHNIQUE: Digital Frontal and Lateral radiographic views of the chest acquired. RADIATION DOSE: NA LIMITATIONS: none FINDINGS: LUNGS AND PLEURA: No opacities, masses or pneumothorax. No pleural effusion. MEDIASTINUM AND HILAR STRUCTURES: No masses or contour abnormalities. HEART AND VASCULAR STRUCTURES: Heart normal size. No evidence for failure. BONES: No acute findings. HARDWARE: None in the chest. OTHER: No other significant finding. IMPRESSION: No focal airspace disease or other evidence of acute cardiopulmonary process. TECHNICAL DOCUMENTATION: JOB ID: [id number] [email or web address]- All Rights Reserved Reading location - IP/workstation name: [email or web address]
== END ==
LOC: RAD 18:50
PROVIDERS: ATTEND Family Medicine
DX: R05 Cough (principal)
CPT/HCPCS: 71046